=== PATIENT | female | born 1995 | race Caucasian/White ===

== ENCOUNTER 2016-09-05 11:50 | Emergency (ER) | payer MEDICAID ==
[~2016-09-05] VITALS: Wt 66.0 kg
[2016-09-05] MEDS ORDERED: IBUPROFEN 600 MG TAB PO ONE (12:30)
--- NOTE | 2016-09-05 13:26 | RADRPT ---
PROCEDURE: Left foot series. CLINICAL INDICATION: Left foot pain after trauma TECHNIQUE: Three views of the left foot are available for review. COMPARISON: None available FINDINGS: There is normal mineralization and alignment of the bones of the left foot. Lisfranc's joint appear s intact. There is no evidence of acute fracture or dislocation. Joint spaces are well maintained. No osteophytes or erosions are seen. The soft tissues are within normal limits. IMPRESSION: 1. Unremarkable left foot series. RPTAT: KK .Kenrick Rocha MD, MD Date Time Electronically viewed and signed by .Kenrick Rocha MD, on 09/05/2016 13:26 .B/
--- NOTE | 2016-09-05 14:09 | ERD ---
ER Documentation Chief Complaint Date/Time DATE: 09/05/16 Chief Complaint Crush injury left great toe HPI The patient is a 21-year-old female who presents to the Emergency Department with complaint of left great toe pain. The patient reports that while walking in her room last night, she accidentally stubbed her left great toe against the edge of her bed. Since, she has been experiencing a throbbing pain to the distal medial aspect of the toe. She denies any subungual hematoma or nail avulsion. Denies skin changes, bruising, lacerations or abrasion. Denies bleeding. She rates her current pain as 7/10, and constant. She denies any radiation of pain. The pain is worse with ambulation, palpation and weight- bearing activity, and improved at rest. She has not yet taken any medication for pain relief. No other complaints at this time. ROS All systems reviewed and are negative except as per history of present illness. Medications Home Meds Active Scripts Ibuprofen* (Motrin*) 600 Mg Tab, 600 MG PO Q6, #30 TAB Prov:ROSIO LOMBARDO PA-C 09/05/16 Allergies Allergies: Coded Allergies: No Known Allergy (Unverified , 09/05/16) PMhx/Soc Medical and Surgical Hx: pt denies Medical Hx, pt denies Surgical Hx Hx Alcohol Use: No Hx Substance Use: No Hx Tobacco Use: No Smoking Status: Never smoker Physical Exam Vitals Vital Signs Date Time Temp Pulse Resp B/P Pulse Ox O2 Delivery O2 Flow Rate FiO2 09/05/16 11:54 98.8 88 20 117/67 98 Physical Exam Const: Well-developed, well-nourished, in no acute distress. Head: Atraumatic Eyes: Normal Conjunctiva ENT: Normal External Ears, Nose and Mouth. Neck: Supple. Full range of motion. Resp: Normal respiratory effort. Cardio: Regular rate and rhythm Skin: No petechiae or rashes. No abrasions or lacerations. No subungual hematomas. Back: No midline or flank tenderness Ext: No clubbing, cyanosis, or edema. Mild tenderness to palpation to the distal left great toe. No deformity. No crepitus. DP and PT pulses 2+. Capillary refill is less than 2 seconds. Normal range of motion of upper and lower extremities bilaterally. Neur: Awake and alert Psych: Normal Mood and Affect Results 24 hrs Current Medications Medications (Trade) Dose Ordered Sig/Angela Route PRN Reason Start Time Stop Time Status Last Admin Dose Admin Ibuprofen (Motrin) 600 mg ONCE ONCE PO 09/05/16 12:30 09/05/16 12:31 DC 09/05/16 12:32 Procedures/MDM DIAGNOSTIC TESTS AND INTERPRETATION: PROCEDURE: Left foot series. CLINICAL INDICATION: Left foot pain after trauma TECHNIQUE: Three views of the left foot are available for review. COMPARISON: None available FINDINGS:There is normal mineralization and alignment of the bones of the left foot. Lisfranc's joint appears intact. There is no evidence of acute fracture or dislocation. Joint spaces are well maintained. No osteophytes or erosions are seen. The soft tissues are within normal limits. IMPRESSION: 1. Unremarkable left foot series. .Kenrick Rocha MD, MD Date Time Electronically viewed and signed by .Kenrick Rocha MD, on 2016 13:26 MEDICAL DECISION MAKING: This is a 21-year-old female presenting to the ED with left great toe pain s/p hitting it against a bed yesterday. On physical examination the patient had mild tenderness to palpation to the medial and distal aspect of the left great toe. Vital signs were stable. She remained neurovascularly intact with no decrease in ROM. Differential diagnosis includes , but is not limited to, soft tissue injury, contusion, sprain, strain, dislocation, fracture, neurovascular injury, tendon injury, vascular injury, peripheral nerve injury. X-ray performed, read by the radiologist, revealed no significant acute osseous abnormalities. No fractures, dislocations, subluxations. Her condition improved during her stay after the administration of Ibuprofen. On reevaluation the patient reports no new complaints. Upon my review and interpretation of the patient's presentation, clinical data, and overall ER course I believe the patient's symptoms are most consistent with left great toe pain. At this time the patient is in stable condition and therefore can be discharged home with strict return precautions for signs of acute deterioration of condition. The patient is advised to follow up with her primary medical provider for reevaluation and further management within 2-3 days , or return to the ER sooner for any new or worsening symptoms. She is instructed on further outpatient pain control methods, including rest, icing and elevation. I shared my medical decision making, plan and the diagnostic results with the patient at length and in great detail, and she verbally understands and agrees with the plan for further observation and care as an outpatient. At the time of discharge all questions were answered. Departure Diagnosis: Primary Impression: Pain of left great toe Condition: Stable Patient Instructions: Crush Injury, Foot/Toe Additional Instructions: Llame al doctor MAANA y lizzie chetan ANAMARIA PARA DENTRO DE 2-3 GONCALVES.Dgale a la secretaria que nosotros le instruimos hacer esta anamaria.Avise o llame si murphy condicin se empeora antes de la anamaria. Regresa aqui si peor o no mejor. ROSIO LOMBARDO PA-C Sep 05, 2016 14:09
[2016-09-05] MEDS ORDERED: IBUP-1542 PO (14:10)
== END 2016-09-05 14:28 | disposition home or self-care (01) ==
LOC: FTE 11:50
DX: M79.675 Pain in left toe(s) (principal)
CPT/HCPCS: 73630; Z7610

== ENCOUNTER 2016-12-12 09:46 | Emergency (ER) | payer MEDICAID ==
[~2016-12-12] VITALS: Ht 165.1 cm; Wt 69.5 kg
[~2016-12-12 09:46] MED LIST: IBUP-1542 PO
[2016-12-12 09:49] VITALS: Ht 165.1 cm; Wt 69.5 kg
--- NOTE | 2016-12-12 10:48 | ERD ---
ER Documentation Chief Complaint Chief Complaint dizziness since yesterday HPI 21-year-old female presents with a chief complaint of dizziness 1-2 days. Associated with nausea and mild headache that is bandlike above the eyes. No symptoms like this in the past. Currently on menstrual period. No alleviating or aggravating factors. Denies fever, chills, severe headache, retro-bulbar neuritis, weakness,Abdominal pain, vomiting, shortness of breath, chest pain. No significant family medical history. Patient has no other complaints and describes no other associated manifestations. Nursing notes have been reviewed and are consistent with history given. ROS All systems reviewed and are negative except as per history of present illness. Medications Home Meds Active Scripts Meclizine Hcl* (Antivert*) 12.5 Mg Tab, 12.5 MG PO Q6H Y for DIZZINESS, #20 TAB Prov:TIP COLÓN PA-C 12/12/16 Ibuprofen* (Motrin*) 600 Mg Tab, 600 MG PO Q6, #30 TAB Prov:ROSIO LOMBARDO PA-C 09/05/16 Allergies Allergies: Coded Allergies: No Known Allergy (Unverified , 09/05/16) PMhx/Soc Hx Alcohol Use: No Hx Substance Use: No Hx Tobacco Use: No Physical Exam Vitals Vital Signs Date Time Temp Pulse Resp B/P Pulse Ox O2 Delivery O2 Flow Rate FiO2 12/12/16 09:49 98.0 69 18 118/61 99 Physical Exam Const: Well-appearing 21-year-old female in no acute distress Head: Atraumatic Eyes: Normal Conjunctiva. No nystagmus. PERRLA, EOMI bilaterally. ENT: Normal External Ears, Nose and Mouth. Neck: Full range of motion..~ No meningismus. Resp: Clear to auscultation bilaterally Cardio: Regular rate and rhythm, no murmurs. Radial pulses 2+ bilaterally. Cap refill 2 seconds bilaterally. Abd: Soft, non tender, non distended. Normal bowel sounds Skin: No petechiae or rashes Back: No midline or flank tenderness Ext: No cyanosis, or edema Neur: Awake and alert Psych: Normal Mood and Affect Result Diagram: 12/12/16 1055 12/12/16 1055 Results 24 hrs Laboratory Tests Test 12/12/16 10:55 12/12/16 11:11 White Blood Count 7.210^3/ul Red Blood Count 4.9110^6/ul Hemoglobin 14.1g/dl Hematocrit 43.0% Mean Corpuscular Volume 87.6fl Mean Corpuscular Hemoglobin 28.7pg Mean Corpuscular Hemoglobin Concent 32.8g/dl Red Cell Distribution Width 13.3% Platelet Count 29242^3/UL Mean Platelet Volume 11.8fl Neutrophils % 52.2% Lymphocytes % 33.7% Monocytes % 7.2% Eosinophils % 6.0% Basophils % 0.6% Nucleated Red Blood Cells % 0.0/100WBC Neutrophils # 3.810^3/ul Lymphocytes # 2.410^3/ul Monocytes # 0.510^3/ul Eosinophils # 0.410^3/ul Basophils # 0.010^3/ul Nucleated Red Blood Cells # 0.010^3/ul Sodium Level 149mmol/L Potassium Level 4.0mmol/L Chloride Level 107mmol/L Carbon Dioxide Level 27mmol/L Anion Gap 19 Blood Urea Nitrogen 11mg/dl Creatinine 0.64mg/dl Glucose Level 71mg/dl Calcium Level 9.6mg/dl Bedside Urine pH (LAB) 7.0 Bedside Urine Protein (LAB) 1+ Bedside Urine Glucose (UA) Negative Bedside Urine Ketones (LAB) Negative Bedside Urine Blood 3+ Bedside Urine Nitrite (LAB) Negative Bedside Urine Leukocyte Esterase (L Negative Procedures/MDM Patient presents with a chief complaint of dizziness associated with nausea and tension type headache as described in history and physical examination. No abdominal pain or vomiting. Labs were obtained including CBC, CMP, urinalysis and urine test. Urine test was negative. Urinalysis revealed the following: Hematuria CBC and CMP reveal the following: Sodium 149. Elevated anion gap. Otherwise unremarkable. At this time a little suspicion for acute cardio/vascular/pulmonary/ intracranial pathologies. Most likely diagnosis is dizziness of unknown etiology. I have spoke with the patient regarding their condition and future management. They have verbally responded that they understand their status and treatment plan. The patients vitals are stable, and their current condition is appropriate for discharge. The patient will be given discharge instructions with return precautions. Departure Diagnosis: Primary Impression: Dizziness Condition: Stable Additional Instructions: Follow up with your PCP within the next 1-3 days for a more thorough evaluation and a possible referral to a specialist. Return the the emergency department immediately if symptoms worsen or change. If you have any questions regarding medications, ask your pharmacist or us before you leave. If any adverse reactions occur while taking your medications, discontinue the treatment and return to the emergency department immediately. Take your medications as directed, and complete the entire course of treatment. TIP COLÓN PA-C Dec 12, 2016 10:48
[2016-12-12 11:09] LABS: URINE BLOOD (Dip) POC 3+ (NEGATIVE)
[2016-12-12 11:15] LABS: BASOPHILS % 0.6 % (0.0-2.0); EOSINOPHILS # 0.4 10^3/ul (0.0-0.5); HEMOGLOBIN 14.1 g/dl (12.0-16.0); LYMPHOCYTES # 2.4 10^3/ul (0.8-2.9); LYMPHOCYTES % 33.7 % (15.0-51.0); MEAN CORPUSCULAR HEMOGLOBIN 28.7 pg (29.0-33.0); MEAN CORPUSCULAR HGB CONC 32.8 g/dl (32.0-37.0); MEAN CORPUSCULAR VOLUME 87.6 fl (82.0-101.0); MEAN PLATELET VOLUME 11.8 fl (7.4-10.4); MONOCYTE # 0.5 10^3/ul (0.3-0.9); MONOCYTES % 7.2 % (0.0-11.0); NEUTROPHIL # 3.8 10^3/ul (1.6-7.5); NEUTROPHILS % 52.2 % (39.0-77.0); PLATELET COUNT 190 10^3/UL (140-415); RED BLOOD COUNT 4.91 10^6/ul (4.20-5.40); RED CELL DISTRIBUTION WIDTH 13.3 % (11.5-14.5); WHITE BLOOD COUNT 7.2 10^3/ul (4.8-10.8)
[2016-12-12 11:37] LABS: CALCIUM 9.6 mg/dl (8.4-10.2); CREATININE 0.64 mg/dl (0.44-1.00)
[2016-12-12] MEDS ORDERED: MECL12.574 PO (11:43)
== END 2016-12-12 12:52 | disposition home or self-care (01) ==
LOC: FTE 09:46
DX: R42 Dizziness and giddiness (principal)
CPT/HCPCS: 80048; 81003; 85025; Z7502; 99283